=== PATIENT | male | born 1990 | race American Indian/Alaskan Native ===

== ENCOUNTER 2017-03-06 13:03 | Emergency (ER) | payer MEDICAID, OTHER ==
[2017-03-06 14:05] VITALS: BMI 22.6
[2017-03-06 14:08] VITALS: RESP 18; TEMP 98.9
--- NOTE | 2017-03-06 14:47 | ED PDOC ---
Arrival/HPI - General Chief Complaint: Cough, Cold, Congestion Time Seen by Provider: 03/06/17 14:36 Historian: Patient - History of Present Illness Narrative History of Present Illness (Text): 03/06/17 14:44 26yr old male presents today with cough, nasal congestion, sore throat x 3 days. pt also with right ankle pain s/p injury 1 week ago. pt c/o pain to the lateral aspect of the right ankle x 1 week. pt states he has been ambulating on ankle. States that he "sprained the ankle". pt denies numbness, weakness, tingling in the extremity. no medications have been taken for pain. pt c/o productive cough and fevers of 101 at home 3 days ago. denies fever at present time. no medications taken at home. pt c/o nasal congestion. no cp or sob. no abdominal pain. no n/v/d. pt states his sister was sick recently. Time/Duration: Other (3 days) Symptom Onset: Gradual Symptom Course: Unchanged Quality: Aching Severity Level: 2 Past Medical History - Provider Review Nursing Documentation Reviewed: Yes - Travel History Have you recently traveled outside [place] w/in the past 3 mons?: No - Infectious Disease Hx of Infectious Diseases: None - Psychiatric Hx Substance Use: No - Anesthesia Hx Anesthesia: No Family/Social History - Physician Review Nursing Documentation Reviewed: Yes Family/Social History: Unknown Family HX Smoking Status: Never Smoked Hx Alcohol Use: Yes Frequency of alcohol use: Socially Hx Substance Use: No Allergies/Home Meds Allergies/Adverse Reactions: Allergies No Known Allergies Allergy (Verified 03/06/17 14:05) Review of Systems - Review of Systems Constitutional: Fevers ENT: Sore Throat, Sinus Congestion Respiratory: Cough, Sputum. absent: Wheezing Cardiovascular: absent: Chest Pain, Palpitations Gastrointestinal: absent: Abdominal Pain, Nausea, Vomiting Genitourinary Male: absent: Dysuria, Frequency, Hematuria Musculoskeletal: Arthralgias (right ankle pain). absent: Back Pain, Neck Pain Skin: absent: Rash, Pruritis Neurological: absent: Headache, Dizziness Psychiatric: absent: Anxiety, Depression Physical Exam Vital Signs Reviewed: Yes Vital Signs Temp Pulse Resp BP Pulse Ox 03/06/17 16:41 87 100 03/06/17 15:51 102 H 18 115/71 97 03/06/17 14:08 98.9 F 110 H 18 117/76 97 Temperature: Afebrile Blood Pressure: Normal Pulse: Tachycardic Respiratory Rate: Normal Appearance: Positive for: Well-Appearing, Non-Toxic, Comfortable Pain Distress: None Mental Status: Positive for: Alert and Oriented X 3 - Systems Exam Head: Present: Atraumatic Mouth: Present: Moist Mucous Membranes Neck: Present: Normal Range of Motion, Trachea Midline. No: Meningeal Signs, Lymphadenopathy Respiratory/Chest: Present: Clear to Auscultation, Good Air Exchange. No: Respiratory Distress, Accessory Muscle Use, Wheezes, Retracting, Rhonchi, Tachypneic Cardiovascular: Present: Tachycardic. No: Murmurs, Rub, Gallop, Muffled Abdomen: No: Tenderness, Distention, Rebound, Guarding Upper Extremity: Present: Normal ROM Lower Extremity: Present: Tenderness (right ankle; + ttp over lateral malleolus ; minimal edema. no erythema; no ecchymosis; sensation and distal pulses intact. cap refill <2. no dorsal foot tenderness, no erythema. ), Swelling, Neurovascularly Intact, Capillary Refill < 2 s. No: Erythema, Deformity, Temperature Abnormalties Neurological: Present: GCS=15, Speech Normal Skin: Present: Warm, Dry, Normal Color. No: Rashes Psychiatric: Present: Alert, Oriented x 3 Medical Decision Making ED Course and Treatment: 03/06/17 14:50 26-year-old male with cough 3 days with subjective fevers. Also with 1 week of right ankle pain status post injury. Patient refusing medications for pain Rapid flu negative Chest x-ray: wnl as read by radiologist Right ankle x-ray: no fracture as read by radiologist. Patient reassessment: pt non toxic well appearing; n odistress. vitals stable. eating and drinking in er. will d/c home to f/u with pmd/orthopedist. air cast and crutches given. Zithromax given by mouth I discussed all results and after the patient advised follow-up with the primary care physician and orthopedist within the next 2 days. Advised immediate return if symptoms worsen persist or if new concerning symptoms develop Patient verbalizes understanding of discharge instructions and need for immediate followup. all aspects of this case were discussed the attending of record. Impression: Cough, ankle injury Motrin every 6 hours as needed for pain Zithromax once daily 4 days Albuterol 2 puffs every 4-6 hours as needed for cough. Follow-up with primary care physician within the next 2 days Follow-up with the orthopedist within the next 2 days Return if symptoms worsen persist or if new concerning symptoms develop 03/06/17 16:43 - Lab Interpretations Lab Results: Lab Results 03/06/17 15:18: Influenza Typ A,B (EIA) Negative for flu a/b - RAD Interpretation Radiology Orders: 03/06/17 14:36 CHEST TWO VIEWS (PA/LAT) [RAD] Stat ANKLE RIGHT 3 VIEWS ROUTINE [RAD] Stat - Medication Orders Current Medication Orders: Discontinued Medications Ibuprofen (Motrin Tab) 600 mg PO STAT STA Stop: 03/06/17 14:37 Last Admin: 03/06/17 15:40 Dose: 600 mg MAR Pain/Vitals Document 03/06/17 15:40 MS (Rec: 03/06/17 16:06 MS [id number]) Pain Reassessment Is This A Pain ReAssessment? No Sleep Is patient sleeping during reassessment? No Presence of Pain Presence of Pain Yes Pain Scale Used Pain Scale Used Numeric Location Pain Location Body [employer] Disposition/Present on Arrival - Present on Arrival Any Indicators Present on Arrival: No History of DVT/PE: No History of Uncontrolled Diabetes: No Urinary Catheter: No History of Decub. Ulcer: No History Surgical Site Infection Following: None - Disposition Have Diagnosis and Disposition been Completed?: Yes Diagnosis: Cough, Ankle pain Disposition: HOME/ ROUTINE Disposition Time: 16:47 Patient Plan: Discharge Condition: GOOD Discharge Instructions (ExitCare): Acute Cough (ED), Arthralgia (ED) Additional Instructions: Motrin every 6 hours as needed for pain Zithromax once daily 4 days Albuterol 2 puffs every 4-6 hours as needed for cough. Follow-up with primary care physician within the next 2 days Follow-up with the orthopedist within the next 2 days Return if symptoms worsen persist or if new concerning symptoms develop Prescriptions: Albuterol HFA [Ventolin HFA 90 mcg/actuation (8 g)] 2 puff IH [id number] PRN #1 inhaler PRN Reason: Cough Azithromycin [Zithromax] 250 mg PO DAILY #4 tab Ibuprofen [Motrin] 600 mg PO Q6H PRN #20 tab PRN Reason: pain/fever reduction Referrals: Darian Greene MD [Staff Provider] - Follow up with primary Wes Bolaños DO [Staff Provider] - Follow up with primary Forms: [employer] ([employer]), WORK NOTE
[2017-03-06 15:52] VITALS: BP 115/71
--- NOTE | 2017-03-06 16:35 | RAD ---
PROCEDURE: Right Ankle Radiographs. HISTORY: ankle pain s/p injury 1 week ago COMPARISON: None FINDINGS: BONES: Bone alignment and mineralization are normal. There is no acute displaced fracture or bone destruction. JOINTS: Normal. No osteoarthritis. Ankle mortise maintained. Talar dome intact SOFT TISSUES: There is mild lateral soft tissue swelling. OTHER FINDINGS: None. IMPRESSION: No acute fracture or dislocation.
[2017-03-06 16:41] VITALS: PULSE 87; O2SAT 100
== END 2017-03-06 15:30 | disposition home or self-care (01) ==
LOC: ED 13:03
DX: M25.571 Pain in right ankle and joints of right foot (principal); R05 Cough